=== PATIENT | male | born 1990 | race Two or more races ===

== ENCOUNTER 2024-02-18 01:06 | Emergency (ER) | payer OTHER ==
[~2024-02-18] VITALS: Ht 180.3 cm; Wt 77.3 kg
[2024-02-18 02:01] LABS: BASOPHILS # (AUTO) 0.1 X10'3 (0-0.2); BASOPHILS % (AUTO) 0.8 % (0-1); EOSINOPHILS % (AUTO) 0.3 % (0-6); HEMATOCRIT 50.3 % (42.0-52.0); HEMOGLOBIN 17.1 g/dl (14.0-17.9); LYMPHOCYTES # (AUTO) 3.1 X10'3 (1.1-4.8); MEAN CORPUSCULAR HEMOGLOBIN 31.7 PG (27.0-31.0); MEAN CORPUSCULAR VOLUME 93.4 FL (78-98); MEAN PLATELET VOLUME 7.3 FL (7.4-10.4); MONOCYTES # (AUTO) 0.8 X10'3 (0-0.9); MONOCYTES % (AUTO) 8.8 % (2-12); NEUTROPHILS # (AUTO) 5.4 X10'3 (1.8-7.7); NEUTROPHILS % (AUTO) 57.1 % (42-75); PLATELET COUNT 471 X10'3 (140-440); RED BLOOD COUNT 5.39 X10'6 (4.70-6.10); RED CELL DISTRIBUTION WIDTH 12.7 % (11.5-14.5); WHITE BLOOD COUNT 9.5 X10'3 (4.5-11.0)
[2024-02-18 02:31] LABS: ALANINE AMINOTRANSFERASE 31 U/L (12-78); ALBUMIN 4.6 G/DL (3.4-5.0); ALKALINE PHOSPHATASE 62 IU/L (46-116); ANION GAP 12 (8-16); ASPARTATE AMINO TRANSFERASE 21 U/L (10-37); BLOOD UREA NITROGEN 14 MG/DL (7-18); BUN/CREATININE RATIO 12.2 (10.0-20.0); CALCIUM 10.1 MG/DL (8.5-10.1); CHLORIDE 101 MMOL/L (99-107); CREATININE 1.15 MG/DL (0.60-1.10); GLUCOSE 107 MG/DL (70-104); POTASSIUM 3.3 MMOL/L (3.5-5.1); SODIUM 140 MMOL/L (135-145); TOTAL CARBON DIOXIDE 27.1 MMOL/L (24-32); eCRCL 97 ML/MIN; eGFR 73 ML/MIN
[2024-02-18 02:36] LABS: PRO BRAIN NATRIURETIC PEPTIDE 63 PG/ML (0-125)
[2024-02-18 03:22] LABS: BILIRUBIN,URINE SMALL (Neg); CLARITY,URINE CLEAR (Clear); COLOR,URINE YELLOW (Yellow); GLUCOSE, URINE NEGATIVE (Neg); KETONES,URINE >=80 mg/dl (Neg); LEUKOCYTE ESTERASE ,URINE NEGATIVE (Neg); NITRITES, URINE NEGATIVE (Neg); OCCULT BLOOD,URINE NEGATIVE (Neg); PROTEIN,URINE NEGATIVE (Neg); UROBILINOGEN,URINE 0.2 E.U/dL (0.2-1.0)
[2024-02-18 03:27] LABS: UA COLLECTION TYPE CLN CATCH MIDSTREAM
[2024-02-18 03:49] LABS: URINE AMPHETAMINE SCREEN POSITIVE (Neg); URINE BARBITUATE SCREEN NEGATIVE (Neg); URINE BENZODIAZEPINES SCREEN NEGATIVE (Neg); URINE CANNABINOID SCREEN POSITIVE (Neg); URINE COCAINE SCREEN NEGATIVE (Neg); URINE METHADONE SCREEN NEGATIVE (Neg); URINE OPIATE SCREEN NEGATIVE (Neg); URINE PHENCYCLIDINE SCREEN NEGATIVE (Neg)
[2024-02-18 04:13] VITALS: BP 127/72; PULSE 89; RESP 15; TEMP 97.6; O2SAT 99
== END 2024-02-18 04:18 | disposition home or self-care (01) ==
LOC: ER 01:08
DX: R07.89 Other chest pain (principal); F17.200 Nicotine dependence, unspecified, uncomplicated
CPT/HCPCS: 36415; 71045; 80053; 80305; 81003; 83880; 84484; 85025; 93005; 99285